=== PATIENT | male | born 1945 | race Caucasian/White ===

== ENCOUNTER → 2023-09-08 09:38 | Outpatient (REF) | payer MEDICARE, BC, SELFPAY ==
[2023-09-08 12:02] LABS: TSH Reflex To Free T4 3.26 uIU/ml (0.47-4.68)
== END ==
LOC: RCS 09:38
PROVIDERS: ATTENDING PHYSICIAN Internal Medicine Cardiovascular Disease; FAMILY PHYSICIAN Student in an Organized Health Care Education/Training Program
DX: I48.0 Paroxysmal atrial fibrillation (principal); R79.89 Other specified abnormal findings of blood chemistry
CPT/HCPCS: 36415; 84443; 93306

== ENCOUNTER 2024-02-08 08:26 | Day surgery (SDC) | payer MEDICARE, BC, SELFPAY ==
[2024-01-12 11:52] VITALS: BMI 30.2
[2024-02-08] VITALS (13 sets, daily range): BP systolic 130–153; BP diastolic 78–93
--- NOTE | 2024-02-08 09:44 | ITS.CL.ABL ---
Valve Liner Rubber - Ablation
Ablation
Procedure Report:
ELECTROPHYSIOLOGIC STUDY AND POSSIBLE ABLATION
DATE: 02/08/24
Primary Care Provider: Dr Elvis Lopes
Primary Feller Operator: Dr Bill Melendez
INDICATION:
Symptomatic Paroxysmal Atrial Fibrillation and Atrial Tachycardia.
HISTORY: See H and P.
Symptomatic AF, poorly controlled with attempted medical therapy
He underwent implantation of a permanent pacemaker for sick sinus syndrome in November 2020 and also had PVI in March 2021.� He did well for quite some time but has now recurred with symptomatic atrial flutter and fibrillation.
Of note, at his electrophysiologic study�March 29, 2021 he underwent cryoballoon ablation to isolate the pulmonary veins.Electrical stimulation then induced a regular atrial tachycardia cycle length 320 ms.� Mapping found macro reentrant left
atrial tachycardia rotating around the right sided pulmonary veins.� Mapping demonstrated an area of marked slowing at the anterior dome of the left atrium which was targeted with cryoballoon ablation which slowed then terminated this tachycardia.
Most recent echocardiogram is from September 08, 2023 finding normal LV systolic function with ejection fraction of 55 to 60%, mild LVH, stage III diastolic dysfunction, mildly dilated right ventricle with normal RV systolic function, mild to moderate
mitral regurgitation, moderate tricuspid regurgitation with normal estimated pulmonary artery pressures.
HAS-BLED: 2
Age > 65 yrs
Antiplatelet Therapy
CHADSVASc: 4
Age
HTN
Vascular Dz: CAD
PRESENTING RHYTHM: Atrial pacing
HISTORY: See H and P.
Symptomatic AF, poorly controlled with attempted medical therapy.
ANTICOAGULATION: rivaroxaban
'TIME-OUT': called and confirmed.
SEDATION/ANESTHESIA: provided via the anesthesia department using general anesthesia.
PROCEDURE:
Ultrasound Guidance performed by id was utilized for femoral venous Vascular Access b/l.
A decapolar CS catheter was placed within the CS for mapping and pacing.
The intracardiac ultrasound catheter was positioned in the RA for continuous intracardiac ultrasound imaging.
Heparin bolus and infusion to target ACT at 300 -350 seconds was administered. Transseptal puncture was performed. This entailed advancing a sheath with dilator into the superior vena cava and withdrawing both (monitoring intracardiac ultrasound,
fluoroscopy and tip pressure) with the tip oriented toward the atrial septum. The fossa ovalis was engaged (indicated by sudden displacement of the sheath tip as well as tenting of the fossa seen on intracardiac ultrasound).
AcJasonDBross transseptal system was used. Left atrial catheter position was confirmed by echocardiographic imaging, pressure monitoring and fluoroscopy. The sheath was advanced over the dilator and positioned in the left atrium.
The multipolar mapping catheter was initially positioned through the transseptal sheath for high density mapping.
Geometry and voltage mapping was performed using the [employer] multipolar grid catheter. Navex was utilized for three-dimensional electroanatomical mapping.
A 3-D map was created using Navex. A 3-D reconstructed CT image was compared to the 3-D Navex map to assist in anatomic evaluation, mapping and ablation.
This demonstrated electrical isolation of the LSPV, RSPV and RIPV with minimal but present reconection at the LIPV towards its inferior septal quadrant.
PES (atrial decremental extrra stimuli) was able to induce a stable atrial tachycardia at CL 430 ms. High density electroanatomical mapping withe the [employer] multipolar mapping catheter to demetrio voltage as well as activation, and entrainment
demonstrated left atrial reentrant tachycardia with focal reentry between the RPV goldy and the mitral valve annulus. This was targeted with ablation using the the [employer] Pulse Select PFA catheter and system. Catheter positioning was guided and
confirmed using both I.C.E. and fluoroscopy. This slowed and terminated the tachycardia. PES was repeated and an AT at CL 450 ms was induced. High density mapping as well as entrainment defines a macroreentrant tachycardia counterclockwise around
the MV annulus. An anterior approach connecting the RSPV to the MVA terminated the tachycardia. Next, the LIPV re-connection was targeted and successfully ablated with pulsed field energy. An additional ablation set was required to extend the
ablation area to achieve wide area circumferential ablation around the LIPV (additional post quadrant antral ablation).
At the end of ablation there is now full PV electrical isolation in a wide area circumferential fashion with entrance and exit block as well as a line of block from the RSPV to the MV annulus. PES was repeated and now there is no inducible
arrhythmia.
Vascade was used for hemostasis.
Additionally, the Medtronic dual chamber pacemaker was interrogated at the beginning of the procedure and at the end of the procedure. Reprogramming was performed, extending the AV interval to further minimize ventricular pacing. Furthermore, there
is stable lead function and stable fluroscopic appearnce of the leads after removal of the temporary catheters.
I.C.E. :
Pre-Ablation Post-Ablation
LVEF: 55 % 55 %
WMA: none none
Pericardial effusion: none none
COMPLICATIONS:
None
SUMMARY:
- Mapping and ablation to re-isolate the PVs
- Additional AF ablation set after PVI (wide area circumferential ablation).
- Mapping and ablation of second tachycardia (micro-reentrant LA tachycardia) and third tachycardia (macro-reentry mitral annular flutter)
- 3-D Electroanatomical Mapping
- Intracardiac Ultrasound
- Interrogation and reprogramming of dual chamber PPM.
Post ablation, I discussed today's findings and results with the patient's .
RECOMMENDATIONS:
- Observe in monitored bed.
- Maintain oral anticoagulation.
- Office visit with Dr Melendez in 3 months.
Copy to:
Dr Elvis Lopes
Dr Bill Melendez
[2024-02-08 12:48] LABS: ACT-LR - POC 376 Seconds (116-155)
[2024-02-08 12:48] LABS: ACT-LR - POC > 397 Seconds (116-155)
[2024-02-08 12:48] LABS: ACT-LR - POC > 397 Seconds (116-155)
[2024-02-08 12:48] LABS: ACT-LR - POC > 397 Seconds (116-155)
[2024-02-08 12:50] LABS: ACT-LR - POC > 397 Seconds (116-155)
--- NOTE | 2024-02-08 15:08 | W.PN.UPDATE ---
Update Note
Progress Note Update
78 yo WM s/p PVI (same day). He denies cp, sob, kobe diet, b/l groins c/d/i VASCADE closure, soft, EKG Apaced. He will continue OAC Xarelto dose at 7pm at home. He will continue toprol. He will f/u Dr. Riggins in 3 mo. He is for d/c home after 4p if
groin stable and able to void.
SUMMARY:
- Mapping and ablation to re-isolate the PVs
- Additional AF ablation set after PVI (wide area circumferential ablation).
- Mapping and ablation of second tachycardia (micro-reentrant LA tachycardia) and third tachycardia (macro-reentry mitral annular flutter)
- 3-D Electroanatomical Mapping
- Intracardiac Ultrasound
- Interrogation and reprogramming of dual chamber PPM.
Post ablation, I discussed today's findings and results with the patient's .
RECOMMENDATIONS:
- Observe in monitored bed.
- Maintain oral anticoagulation.
- Office visit with Dr Melendez in 3 months.
Copy to:
Dr Elvis Lopes
Dr Bill Melendez
[2024-02-08] MEDS: ZESTRIL 2.5 MG PO (15:27)
== END 2024-02-08 16:10 | disposition home or self-care (01) ==
LOC: CATH 08:26
PROVIDERS: ATTENDING PHYSICIAN Internal Medicine Cardiovascular Disease; FAMILY PHYSICIAN Student in an Organized Health Care Education/Training Program; OTHER PHYSICIAN Internal Medicine Cardiovascular Disease
DX: I48.0 Paroxysmal atrial fibrillation (principal); E78.5 Hyperlipidemia, unspecified; Z45.010 Encounter for checking and testing of cardiac pacemaker pulse generator [battery]; Z87.891 Personal history of nicotine dependence; I10 Essential (primary) hypertension; I25.10 Atherosclerotic heart disease of native coronary artery without angina pectoris; R53.83 Other fatigue; R00.2 Palpitations; R06.02 Shortness of breath; Z79.01 Long term (current) use of anticoagulants; Z79.899 Other long term (current) drug therapy; E66.9 Obesity, unspecified; Z68.30 Body mass index [BMI] 30.0-30.9, adult; Z95.5 Presence of coronary angioplasty implant and graft; N40.0 Benign prostatic hyperplasia without lower urinary tract symptoms; I47.19 Other supraventricular tachycardia; I48.4 Atypical atrial flutter; I08.1 Rheumatic disorders of both mitral and tricuspid valves; Z79.02 Long term (current) use of antithrombotics/antiplatelets; Z79.82 Long term (current) use of aspirin
CPT/HCPCS: C1732; C1760; C1894; C1733; C1769; C1730; C1766; C1892; 76937; 85347; 86850; 86900; 86901; 93005; 93656; 93657

== ENCOUNTER → 2024-03-08 11:06 | Outpatient (REF) | payer SELFPAY ==
[2024-03-08 14:24] LABS: Hepatitis B Surface Antigen Negative (Negative)
[2024-03-08 14:29] LABS: Hepatitis A IgM Antibody Negative (Negative)
[2024-03-08 14:32] LABS: HIV Combo Negative (Negative)
[2024-03-08 14:41] LABS: Hepatitis B Surface Antibody Negative; Hepatitis C Antibody Negative (Negative)
== END ==
LOC: REG 11:06
PROVIDERS: ATTENDING PHYSICIAN Student in an Organized Health Care Education/Training Program
DX: Z11.59 Encounter for screening for other viral diseases (principal); Z11.4 Encounter for screening for human immunodeficiency virus [HIV]; W46.0XXA Contact with hypodermic needle, initial encounter
CPT/HCPCS: 36415; 86706; 86709; 86803; 87340; 87389

== ENCOUNTER → 2024-04-09 12:59 | Outpatient (REF) | payer MEDICARE, BC, SELFPAY | LOC: RAD 12:59 | PROVIDERS: ATTENDING PHYSICIAN Student in an Organized Health Care Education/Training Program | DX: R05.1 Acute cough (principal) | CPT/HCPCS: 71046 ==

== ENCOUNTER → 2024-06-14 10:08 | Outpatient (REF) | payer MEDICARE, BC, SELFPAY | LOC: RCS 10:08 | PROVIDERS: ATTENDING PHYSICIAN Internal Medicine Cardiovascular Disease; FAMILY PHYSICIAN Student in an Organized Health Care Education/Training Program | DX: R06.02 Shortness of breath (principal) | CPT/HCPCS: 93306 ==

== ENCOUNTER → 2024-12-19 08:14 | Outpatient (REF) | payer MEDICARE, BC, SELFPAY | LOC: RCS 08:14 | PROVIDERS: ATTENDING PHYSICIAN Internal Medicine Cardiovascular Disease; FAMILY PHYSICIAN Student in an Organized Health Care Education/Training Program | DX: R06.02 Shortness of breath (principal) | CPT/HCPCS: 78452; 93017; A9500 ==

== ENCOUNTER 2024-12-20 12:40 | Emergency (ER) | payer MEDICARE, BC, SELFPAY ==
[2024-12-20 12:41] VITALS: BP 183/101
[2024-12-20 13:08] LABS: % Basophils 0.5 % (0-2); % Eosinophils 1.1 % (0-6); % Immature Granulocytes 0.1 % (0-0.5); % Lymphocytes 19.7 % (20.5-51.1); % Monocytes 6.7 % (1.7-9.3); % Neutrophils 71.9 % (42.2-75.2); Absolute Eosinophils 0.1 10^3/uL (0-0.7); Absolute Lymphocytes 1.5 10^3/uL (1.2-3.4); Absolute Monocytes 0.5 10^3/uL (0.1-0.6); Absolute Neutrophils 5.4 10^3/uL (1.4-6.5); Hematocrit 45.6 % (39.0-52.0); Hemoglobin 16.1 g/dL (13.0-18.0); Mean Corp Hgb Conc. 35.3 g/dL (33.0-37.0); Mean Corpuscular Hgb 32.9 pg (27.0-31.0); Mean Corpuscular Volume 93.3 fL (80.0-94.0); Mean Platelet Volume 9.4 fL (7.4-10.4); Nucleated Red Blood Cells % 0 % (-); Platelet Count 186 10^3/uL (130-400); Red Blood Cell Count 4.89 10^6/uL (4.70-6.10); Red Cell Dist. Width 11.8 % (11.5-14.5); White Blood Cell Count 7.5 10^3/uL (4.8-10.8)
[2024-12-20 13:22] LABS: ALT (SGPT) 25 U/L (0-50); AST (SGOT) 22 U/L (17-59); Albumin 4.5 g/dl (3.5-5.0); Alkaline Phosphatase 55 U/L (38-126); Blood Urea Nitrogen 19 mg/dl (9-20); Calcium 9.6 mg/dl (8.4-10.2); Carbon Dioxide 25 mmol/L (22-30); Chloride 107 mmol/L (98-107); Glucose 144 mg/dl (70-99); Potassium 4.7 mmol/L (3.5-5.1); Sodium 139 mmol/L (135-145); Total Bilirubin 1.2 mg/dl (0.2-1.3); Total Protein 6.9 g/dl (6.3-8.2); eGFR > 60.00
[2024-12-20 13:34] LABS: Troponin I < 0.012 ng/ml
[2024-12-20 15:13] VITALS: BP 149/85
--- NOTE | 2024-12-20 16:20 | ED.GENMED ---
History of Present Illness
General
Chief Complaint: Change in Mental Status
Source: patient and spouse
Exam Limitations: none
Time Seen by Provider: 12/20/24 16:01
History of Present Illness
History of Present Illness:
See MDM
Past History
Past History
ED Past Medical History: Arrthythmia (afib), CAD, HTN and Hypercholesterolemia
ED Past Surgical History: Cardiac (Stents) and Urological
Social History
Tobacco: Former smoker
Alcohol: None
Drug: None
Personal:
Living: with family
Employment: Retired
Family History
Family History: Other (Noncontributory)
Phy Exam
Physical Exam
Physical Exam:
See MDM
Course
Orders/Labs/Results
Orders:
Orders
12/20/24 12:47
ECG [Electrocardiogram (*1)] Urgent
Reason for Study: Vertigo / Dizzy
EKG- Treatment ONCE
12/20/24 12:53
Complete Blood Count/With Diff Urgent
Comprehensive Metabolic Panel Urgent
Troponin I Urgent
12/20/24 16:18
CT Head W/o Iv Contrast Urgent
Comment:
Reason For Exam: memory loss
Abnormal Lab Results
12/20/24
12:53
MCH 32.9 H pg
(27.0-31.0)
Lymphocytes % 19.7 L %
(20.5-51.1)
Glucose 144 H mg/dl
(70-99)
12/20/24 12:53
12/20/24 12:53
Vital Signs
Initial and Last Documented VS:
Initial Vital Signs
Temp Pulse Resp BP Pulse Ox
97.4 F 73 16 183/101 99
12/20/24 12:41 12/20/24 12:41 12/20/24 12:41 12/20/24 12:41 12/20/24 12:41
Last Documented Vital Signs
Temp Pulse Resp BP Pulse Ox
97.7 F 60 18 149/85 98
12/20/24 15:13 12/20/24 15:13 12/20/24 15:13 12/20/24 15:13 12/20/24 16:23
MDM/Problems Addressed
Differential Diagnosis Includes:
HPI and MDM Narrative:
79-year-old male presenting for evaluation of memory loss. Patient states he had a nuclear stress test yesterday. Soon after the procedure, patient went home and took 2 naps which is unusual for him. He woke up today and went to work. While at
work, he realized that he was having memory loss of people's names and where he recently went on vacation. This is abnormal for him. He went back to the cardiology office and they suggested that he go to the emergency department for evaluation.
Patient states his memory has improved and he currently feels at his baseline. Blood work and EKG performed. No significant abnormalities noted. He has a paced rhythm. He has a prior history of A-fib but he stopped Xarelto last month when his
pacemaker was interrogated and he has not had any A-fib since his ablation.
Given the history, will obtain CT head. Will interrogate pacemaker to see if he has had any more A-fib issues since the last interrogation1 month ago
Physical exam
General: Well appearing and non-toxic
HEENT: protecting airway
Neck: appears supple
CV: No evidence of cyanosis. Regular rate and rhythm
Resp: No accessory muscle use
Abd: Non-distended
Extremities: No deformities
Neuro: alert. No focal deficits. Normal finger-nose
Psych: Normal affect
Skin: Intact
Problems Addressed including Acute and Chronic Conditions affecting care:
1. Memory loss
Acuity: acute
Prognosis: stable
Details: Will obtain CT head. Blood work without significant abnormalities. Patient denies urinary symptoms
Updates
Pacemaker interrogation shows no evidence of A-fib or a flutter. CT head negative. Patient feels comfort going home. Discussed talking to PCP about symptoms and considering outpatient MRI as it is more sensitive
Differential Diagnosis (but not limited to): TIA, hyponatremia, metabolic encephalopathy
Testing considered: Urinalysis but denies symptoms
Drug therapy (if applicable): OTC meds, please see d/c instruction regarding Rx drugs
Amount and/or Complexity of Data Reviewed
Clinical info obtained from: Patient
External data reviewed: N/A
Labs I independently reviewed (but not limited to): Troponin and electrolytes within normal limits
Radiology: The CT scan was personally and independently reviewed. In addition, official CT report reviewed.
Pulse Ox: not hypoxic
EKG independently reviewed: Paced rhythm, normal axis, no STEMI
Environmental Services Technician: N/A
Critical Care: N/A
Risk of Complication:
Social Determinants of health: Good social support
Discussed with other providers: N/A
Escalation of Care includes Admit/Obs: After being observed in the Emergency Department, pt stable for discharge.
Occasional wrong word or 'sound a like' substitutions may have occurred due to the inherent limitations of voice recognition software. Read the chart carefully and recognize, using context, where substitutions have occurred.
*Pulse Oximetry
SaO2: 98
Oxygen Mode of Delivery: Room air
Patient hypoxic: no
*Critical Care Note
Total Time (30-74mins, 75-104mins- exclusive of procedures): Not Applicable
ED Attending Note
-
Portions of this chart may have been created with voice recognition software.� Occasional wrong word or��sound alike� substitutions may have occurred due to the inherent limitations of voice recognition software.
Discharge Plan
Departure
Patient Disposition: Home (Routine Discharge)
Date of Disposition: 12/20/24
Time of Disposition: 17:37
Patient with high blood pressure during this ER visit?: No
Discharge Problem:
Memory loss
Prescriptions:
No Action
atorvastatin [Lipitor] 10 MG tablet
40 mg PO HS
lisinopril 10 MG tablet
2.5 mg PO DAILY
Patient Comments:
As instructed, patient only took 5mg PO on 01/06/21 and 01/05/21
Rx Instructions:
Takes 1/2 of a 5 mg tablet
acetaminophen [Tylenol] 325 mg Tablet
650 mg PO Q4H PRN (Reason: pain)
metoprolol succinate [Toprol XL] 25 mg Tablet Extended Release 24 Hr
25 mg PO DAILY
tamsulosin 0.4 mg Capsule
0.4 mg PO HS
Referrals:
Elvis Winters DO [Family Provider, Family Practice]
Activity Restrictions/Additional Instructions:
Please return for any worsening symptoms.
You may return at any time if you have further concerns.
Please follow up with your doctor at the first available appointment, preferably this week.
Interventions
Interventions:
*Risk Screen - Suicide Last Done: 12/20/24 16:26
*General Assessment Last Done: 12/20/24 16:26
*Neglect/Abuse Screening Last Done: 12/20/24 16:26
*ED- Fall Risk Assessment Last Done: 12/20/24 16:26
ED- Neurological Assessment Last Done: 12/20/24 16:25
ED Swallowing Screen Last Done: 12/20/24 16:25
Discharge Date and Time
Print Language: TURKISH
== END 2024-12-20 17:57 | disposition home or self-care (01) ==
LOC: EMR 12:40
PROVIDERS: Emergency Medicine; EMERGENCY PHYSICIAN Student in an Organized Health Care Education/Training Program; FAMILY PHYSICIAN Student in an Organized Health Care Education/Training Program
DX: R41.3 Other amnesia (principal); I25.10 Atherosclerotic heart disease of native coronary artery without angina pectoris; E78.00 Pure hypercholesterolemia, unspecified; I10 Essential (primary) hypertension; I48.91 Unspecified atrial fibrillation; Z87.891 Personal history of nicotine dependence; Z95.5 Presence of coronary angioplasty implant and graft
CPT/HCPCS: 99284; 70450; 80053; 84484; 85025; 93005

== ENCOUNTER → 2025-01-17 07:17 | Outpatient (REF) | payer MEDICARE, BC, SELFPAY ==
[2025-01-17 08:22] LABS: Hematocrit 44.6 % (39.0-52.0); Hemoglobin 15.3 g/dL (13.0-18.0); Mean Corp Hgb Conc. 34.3 g/dL (33.0-37.0); Mean Corpuscular Volume 95.5 fL (80.0-94.0); Nucleated Red Blood Cells % 0 % (-); Platelet Count 175 10^3/uL (130-400); Red Cell Dist. Width 11.6 % (11.5-14.5)
[2025-01-17 08:44] LABS: Blood Urea Nitrogen 21 mg/dl (9-20); Calcium 9.4 mg/dl (8.4-10.2); Carbon Dioxide 27 mmol/L (22-30); Chloride 108 mmol/L (98-107); Glucose 100 mg/dl (70-99); HDL Cholesterol 44 mg/dl; LDL Cholesterol, Calculated 68 mg/dl; Potassium 4.8 mmol/L (3.5-5.1); Sodium 142 mmol/L (135-145); Very Low Density Lipoprotein 15 mg/dl (0-30); eGFR > 60.00
== END ==
LOC: REG 07:17
PROVIDERS: ATTENDING PHYSICIAN Student in an Organized Health Care Education/Training Program
DX: I10 Essential (primary) hypertension (principal); I25.10 Atherosclerotic heart disease of native coronary artery without angina pectoris; Z95.5 Presence of coronary angioplasty implant and graft; I48.0 Paroxysmal atrial fibrillation
CPT/HCPCS: 36415; 80048; 80061; 85025